=== PATIENT | female | born 1960 | race Caucasian/White ===

== ENCOUNTER 2022-06-17 08:08 | Emergency (ER) | payer OTHER, SELFPAY ==
--- NOTE | 2022-06-17 08:15 | ED.URI ---
HPI - URI/Sore Throat General Chief Complaint: Ear Stated Complaint: Eye Problem/Ear Pain Time Seen by Provider: 06/17/22 08:15 Source: patient and RN notes reviewed History of Present Illness HPI Narrative: Patient is a 61-year-old female who presents to the Urgent Care with complaints of right eye weeping, drainage and crustiness since yesterday. Patient states that she has also been having ringing in a stopped up the left ear for approximately 2 weeks in which she has not taken anything [id number]. Patient is use warm compress to the right eye. Denies any changes in vision or injury. No other acute complaints. No acute distress noted. Patient aware of the plan of care. Some parts of this dictation were generated by voice recognition software and may contain typographical and/or grammatical inaccuracies. Related Data Home Medications Medication Instructions Recorded Confirmed celecoxib 100 mg capsule 100 mg PO DIRECTED 06/17/22 06/17/22 hydroxychloroquine 200 mg tablet 200 mg PO DIRECTED 06/17/22 06/17/22 omeprazole 40 mg capsule,delayed 40 mg PO DIRECTED 06/17/22 06/17/22 release Allergies Allergy/AdvReac Type Severity Reaction Status Date / Time No Known Allergies Allergy Verified 06/17/22 08:21 Review of Systems Review of Systems: CONSTITUTIONAL: Denies fever, chills, or sweats. EYES: Reports of drainage, redness to the right eye ENT: Denies rhinorrhea, congestion, sore throat. Reports of pressure to the left ear CARDIOVASCULAR: Denies chest pain, palpitations, or edema. RESPIRATORY: Denies cough or dyspnea. GASTROINTESTINAL: Denies abdominal pain, nausea, vomiting, or diarrhea. GENITOURINARY: Denies dysuria or hematuria. SKIN: Denies rash or itching. MUSCULOSKELETAL: Denies back pain, joint pain, or myalgia. NEUROLOGIC: Denies headache, numbness, or weakness. PSYCHIATRIC: Denies anxiety or depression. All other systems reviewed are negative, except as documented in HPI. PMFSH Comments At the time of my signature, I reviewed and agree with the nursing past medical, surgical, social, and family history. There is no relevant family history pertinent to the patient complaint. Exam Narrative: GENERAL: This is a well-nourished, well-developed patient, in no apparent distress. HEAD: normocephalic, atraumatic. EYES: PERRL. Sclera clear/white. Vision is grossly intact. scant clear to yellow drainage from the right eye with mild injected conjunctiva. EARS: External ears normal, auditory canals clear and without drainage, mild fluid behind left TM without otitis. Bilateral TMs normal without perforation. Hearing grossly intact. NOSE: External nose normal with no obvious nasal discharge, nares without redness, no rhinorrhea. THROAT: Mucous membranes moist, posterior pharynx clear. NECK: Neck supple, non-tender without lymphadenopathy CARDIOVASCULAR: Regular rate and rhythm without murmurs, gallops, or rubs. RESPIRATORY: Clear to auscultation. Breath sounds equal bilaterally. No wheezes, rales, or rhonchi. SKIN: warm, intact with no suspicious lesions or rash, good texture and turgor. NEURO: awake, alert, and oriented to person, place and time. There were no obvious focal neurologic abnormalities. EXTREMITIES: No clubbing, cyanosis, or edema. Course Course Level of Care: Express Care Visit Vital Signs Vital signs: Vital Signs Temperature 98.2 F 06/17/22 08:23 Pulse Rate 102 H 06/17/22 08:23 Respiratory Rate 18 06/17/22 08:23 Blood Pressure 111/82 06/17/22 08:23 Pulse Oximetry 100 06/17/22 08:23 Oxygen Delivery Room Air 06/17/22 08:23 Temperature 98.2 F 06/17/22 08:23 Pulse Rate 102 H 06/17/22 08:23 Respiratory Rate 18 06/17/22 08:23 Blood Pressure 111/82 06/17/22 08:23 Pulse Oximetry 100 06/17/22 08:23 Oxygen Delivery Room Air 06/17/22 08:23 reviewed MDM - URI/Sore Throat MDM Narrative Medical decision making narrative: Advised ricardo
[2022-06-17 08:23] VITALS: BP 111/82; PULSE 102; RESP 18; TEMP 36.8; O2SAT 100
== END 2022-06-17 08:31 | disposition home or self-care (01) ==
PROVIDERS: Emergency Provider Nurse Practitioner Family; PCP Internal Medicine
DX: H10.9 Unspecified conjunctivitis (principal); K21.9 Gastro-esophageal reflux disease without esophagitis
CPT/HCPCS: 99213; G0463